=== PATIENT | male | born 1950 | race Caucasian/White ===

== ENCOUNTER 2017-04-28 14:09 | Day surgery (SDC) | payer OTHER ==
[~2017-04-28] VITALS: Ht 182.9 cm; Wt 90.7 kg
[~2017-04-28 14:09] MED LIST: ASPI-973 PO; ATOR80TA PO; GLIP10TA10 PO; LISI10TA PO; Lactated Ringer's 1,000 ML IV ONE; METF-496 PO; METO25TA99 PO
[2017-04-28] MEDS ORDERED: fentaNYL-PF 50 mCg/mL 2 mL Inj ONE (14:10)
[2017-04-28] MEDS ORDERED: Propofol 10,000 mCg/mL 20 mL Inj ONE (14:10)
[2017-04-28 14:32] VITALS: BP 144/78; PULSE 60; RESP 14; O2SAT 98
[2017-04-28] MEDS ORDERED: LOV80 SUBQ (14:40)
[2017-04-28] MEDS ORDERED: WARF5TAB PO (14:40)
--- NOTE | 2017-04-28 15:45 | PCM.HPANE ---
Patient Data Surgeon Admitting Provider: Attending Provider:Cl Zurita MD Primary Care Physician:David Tavares MD Other Provider:DebbieocKelso Anesthesia Reason for Visit History Of Colon Polyps Ht/WT & BMI Body Mass Index Allergies Coded Allergies: morphine (Verified Allergy, Severe, SEVERE DECREASED RR, 04/28/17) Penicillins (Verified Allergy, Intermediate, Rash, 04/27/17) furosemide (Verified Allergy, Intermediate, DECREASED BLOOD PRESSURE, 04/27) Past Anesthesia History Anesthesia History: Denies:: Abnormal Airway, Anesthesia Reactions, Difficult Intubation, Fam Anesthesia Reaction, Fam Malignant Hypertherm, Malignant Hyperthermia Medications Reported Medications Warfarin Sodium (Coumadin)5 Mg Tablet5 Mg PO DAILY 30 Days Ref 0 04/28/17 Enoxaparin (Lovenox)80 Mg/0.8 Ml Otrhpux40 Mg SUBQ Q12 Ref 0 04/28/17 Metoprolol Succinate ER 25 Mg Tab.er.24h25 Mg PO DAILY Ref 0 04/27/17 Metformin ER 1,000 Mg Tablet1,000 Mg PO DAILY Ref 0 04/27/17 Lisinopril 10 Mg Ltzwkr43 Mg PO DAILY 30 Days Ref 0 04/27/17 Glipizide 10 Mg Ckiokc17 Mg PO DAILY 30 Days 04/27/17 Atorvastatin (Lipitor)80 Mg Eujxob63 Mg PO DAILY Ref 0 04/27/17 Aspirin 81 Mg Wzbynm95 Mg PO DAILY Ref 0 04/27/17 History History of ENT Problems?: No HEENT History: Denies:: Abnormal Airway Cataracts Difficult Intubation Dysphagia Glaucoma Hearing Problem Sinus Problem TMJ Denture Type: None Teeth Condition: Within Normal Limits Hx of Heart Problems?: Yes Cardiovascular History: Positive for:: Cardiac Surgery (CABG 1998, Aortic aneurysm repair 2004. ) Chest Pain (Chest pain, fatigue x 1-2 months) Edema (Reports occasional ankle edema) Heart Murmur Hypertension Denies:: Congestive Heart Failure Irregular Heartbeat Thrombophlebitis Hx of Respiratory Problem?: No Respiratory History: Denies:: Asthma COPD Chest Surgery Cough Dyspnea Emphysema Hemoptysis Oxygen Administration Pneumonia Pulmonary Embolism Tuberculosis Use of C-PAP Machine Use of Inhalers / NEBS Hx Neurologic Problems?: No Hx of GI Problems?: No Hx of Problems?: No Hx Musculoskeletal Problems?: No Hx Surgeries?: Yes History Blood Transfusions: Denies:: Blood Transfusions Hx Alcohol Use: YesHx Substance Use: No Stop/Bang Risk Assessment Category Category 1A: Patient has history of documented sleep apnea, and HAS NOT received any narcotic, sedative or anesthesia administration during this stay. Category 1B: Patient has history of documented sleep apnea, and HAS received any narcotic , sedative or anesthesia administration during this stay Category 2: Patient has SUSPECTED Obstructive Sleep Apnea, and HAS received any narcotic , sedative or anesthesia administration during this stay. Category 3: Patient has SUSPECTED Obstructive Sleep Apnea and HAS NOT received narcotic, sedative or anesthesia administration during this stay. Category 4: Outpatient in Procedural Areas with known sleep apnea or who screen positive for High Risk via the STOP/BANG questionnaire. Exam Exam General Appearance: Alert, Oriented X3, Cooperative, No Acute Distress HEENT/AIRWAY: MP 2 Lungs: Clear to Auscultation Heart: Exam Unremarkable Plan Impression Patient chart reviewed, patient interviewed and anesthestic plan with risks, benefits, and alternatives discussed, and informed consent obtained. ASA Physical Status: ASA2 Mod Systemic Disease Anesthetic Plan: MAC Bene/Risks/Altern/Consents: Yes HP Complete Prior to Induction: Yes Basil Khanna MD Apr 28, 2017 09:54
[2017-04-28 15:48] VITALS: BP 115/57; PULSE 58; RESP 14; O2SAT 97
--- NOTE | 2017-04-28 15:50 | PCM.ANEP1 ---
Post Anesthesia PACU Phase 1 Assessment Vital Signs Vital Signs Date Time Temp Pulse Resp B/P Pulse Ox O2 Delivery O2 Flow Rate FiO2 04/28/17 15:48 58 14 115/57 97 Room Air 04/28/17 14:32 36.5 60 14 144/78 98 Room Air Anesthetic Administered: MAC Level of Alertness: Sleepy, easy to arouse Pain: No Nausea or Vomiting: No CV Function & Hydration Stable: Yes Airway Device: Lungs: Clear to Auscultation PACU Phase 2 Assessment Patient Instructions Provided: N/A Basil Khanna MD Apr 28, 2017 15:50
[2017-04-28 15:56] VITALS: BP 120/64; PULSE 59; RESP 16; O2SAT 98
--- NOTE | 2017-04-28 16:15 | ENDO ---
[address] [address] ENDOSCOPY PROCEDURE PATIENT: MELIDA MCCLENDON : 1950 MR#: [id number] ADMIT: 04/28/2017 JOB ID: [id number] DATE OF SERVICE: 04/28/2017 TYPE OF OPERATION: Colonoscopy with hot snare polypectomy. PREOPERATIVE DIAGNOSIS: History of colon polyps. POSTOPERATIVE DIAGNOSIS: A 1 cm sigmoid polyp, removed by hot snare polypectomy, followed by hemoclip placement at postpolypectomy site. ANESTHESIA: Monitored anesthesia care. COMPLICATIONS: None. BLOOD LOSS: Minimal. DESCRIPTION OF PROCEDURE: After risks and benefits explained to the patient, informed consent was obtained. After anesthesia administered, a colonoscope was inserted from the rectum to the cecum. Mucosa carefully examined. Prep of the patient was excellent. After the procedure was done, the scope withdrawn, procedure terminated. FINDINGS: Upon inspection of the anus, no masses, hemorrhoids, ulcers, or fissures that were seen. Throughout the entire examination, there was a 1 cm sigmoid polyp, removed by hot snare polypectomy, followed by a hemoclip placed at the postpolypectomy site. No other polyps or masses were seen. Retroflexion was normal. IMPRESSIONS: A 1 cm sigmoid polyp, removed by hot snare polypectomy followed by a hemoclip placement at the postpolypectomy site. RECOMMENDATIONS: Await pathology results. If tubular adenoma, then repeat colonoscopy in three years. Otherwise, repeat colonoscopy in five years. Hold all anticoagulants for the next 24 hours. If no overt signs of bleeding, then okay to restart anticoagulation after that.
--- NOTE | 2017-04-30 14:23 | PATH ---
SURGICAL PATHOLOGY Attending Physician:Cl Zurita MD CASE STATUS: Signed Out PATIENT NAME: MELIDA MCCLENDON PID: [id number] : 1950 DATE COLLECTED:04/28/2017 00:00 SPECIMEN: Colon, Polyp CLINICAL HISTORY: 1. SIGMOID POLYP FINAL DIAGNOSIS: 1.SIGMOID COLON POLYP: POLYPOID TUBULAR ADENOMA, TOTALLY EXCISED. ICD10 D12.5 GROSS DESCRIPTION: The specimen is received in one formalin filled container labeled with the patient's name, sublabeled "sigmoid polyp" and consists of a 0.8 x 0.8 x 1.1 CM portion of tissue. The specimen is inked, trisected and totally submitted in one cassette. 04/29/2017 [facility] MICRO DESCRIPTION: See diagnosis. ICD-9 CODES: CPT CODES: 1: 89066 Electronically Signed Out Saleem Harris MD [facility] [address], [place] [address] Technical component performed at [facility], [facility] [address], [place], [address]
== END 2017-04-28 23:59 | disposition home or self-care (01) ==
LOC: END 14:09
PROVIDERS: ATTEND Internal Medicine Gastroenterology
DX: Z12.11 Encounter for screening for malignant neoplasm of colon (principal); Z86.010 Personal history of colon polyps; D12.5 Benign neoplasm of sigmoid colon; I10 Essential (primary) hypertension; I25.10 Atherosclerotic heart disease of native coronary artery without angina pectoris; E78.5 Hyperlipidemia, unspecified; E11.9 Type 2 diabetes mellitus without complications; I50.9 Heart failure, unspecified; I71.4 Abdominal aortic aneurysm, without rupture; I35.0 Nonrheumatic aortic (valve) stenosis; Z87.442 Personal history of urinary calculi; Z79.01 Long term (current) use of anticoagulants; Z95.1 Presence of aortocoronary bypass graft; Z79.84 Long term (current) use of oral hypoglycemic drugs; Z79.82 Long term (current) use of aspirin
CPT/HCPCS: 45385; J3010; J7120